=== PATIENT | male | born 1985 | race African-American/Black ===

== ENCOUNTER 2021-03-25 09:48 | Emergency (ER) | payer OTHER | END 2021-03-25 12:05 | disposition left against medical advice (07) | LOC: ERS 09:48 | DX: Z53.21 Procedure and treatment not carried out due to patient leaving prior to being seen by health care provider (principal) ==

== ENCOUNTER 2024-10-24 09:19 | Outpatient (CLI) | payer OTHER | END 2024-10-24 09:20 | disposition home or self-care (01) | LOC: SCSRAD 09:19 | PROVIDERS: ATTEND Family Medicine | DX: R10.32 Left lower quadrant pain (principal); M16.12 Unilateral primary osteoarthritis, left hip ==